=== PATIENT | female | born 1960 | race African-American/Black ===

== ENCOUNTER 2021-12-19 19:21 | Emergency (ER) | payer MEDICARE, MEDICAID ==
[~2021-12-19] VITALS: Ht 182.8 cm; Wt 59.0 kg
[2021-12-19] MEDS ORDERED: EXELON1 EACH TD (19:42)
[2021-12-19] MEDS ORDERED: ATIVAN1 MG PO (19:42)
[2021-12-19] MEDS ORDERED: HALOPERIDOL5 MG PO (19:43)
[2021-12-19] MEDS ORDERED: PALIPERIDONE ER3 MG PO (19:44)
[2021-12-19] MEDS ORDERED: REMERON15 M2 PO (19:45)
[2021-12-19] MEDS ORDERED: TRAZODONE100 MG PO (19:45)
[2021-12-19 20:13] LABS: BILIRUBIN Negative (Negative); BLOOD Negative (Negative); CLARITY Cloudy (Clear); COLOR Yellow (Yellow); GLUCOSE Negative (Negative); KETONE Trace (Negative); LEUKO ESTERASE 2+ (Negative); NITRITE Negative (Negative); PH 6.5 (4.5-8.0)
[2021-12-19 20:15] LABS: BASO % 0.4 % (0.0-1.0); EOS # 0.3 10*3/uL (0.0-0.4); EOS % 3.6 % (1.0-4.0); HEMATOCRIT 33.6 % (37.0-47.0); LYMPH # 1.5 10*3/uL (1.3-4.4); LYMPH % 18.4 % (27.0-41.0); MEAN CORPUSCULAR HGB CONC 33.3 g/dl (33.0-37.0); MEAN PLATELET VOLUME 9.9 fl (9.6-12.3); MONO # 0.8 10*3/uL (0.1-1.0); MONO % 9.8 % (3.0-9.0); NEUT # 5.5 10*3/uL (2.3-7.9); NEUT % 67.6 % (47.0-73.0); PLATELET COUNT AUTOMATED 264 10*3/uL (130-400); RED CELL DISTRI WIDTH 12.2 % (0-14.5); WHITE BLOOD COUNT 8.1 10*3/uL (4.8-10.8)
[2021-12-19 20:22] LABS: URINE AMPHETAMINES < 1000 (1000ng/ml); URINE BARBITURATES < 200 (200ng/ml); URINE BENZODIAZEPINES < 200 (200ng/ml); URINE CANNABINOIDS (THC) < 50 (50ng/ml); URINE COCAINE < 300 (300ng/ml); URINE METHADONE < 300 (300ng/ml); URINE OPIATES < 300 (300ng/ml)
[2021-12-19 20:29] LABS: URINE PHENCYCLIDINE < 25 (25ng/ml)
[2021-12-19 20:43] LABS: ALKALINE PHOSPHATASE 59 U/L (45-117); BUN 15 mg/dl (7-24); CHLORIDE 105 mmol/L (98-107); CPK 32 U/L (26-192); CREATININE 0.72 mg/dL (0.55-1.02); POTASSIUM 3.5 mmol/L (3.5-5.1); SGOT/AST 14 IU/L (3-35); SGPT/ALT 28 U/L (12-78); SODIUM 139 mmol/L (136-145); TOTAL PROTEIN 7.2 gm/dL (6.4-8.2)
[2021-12-19 20:44] LABS: BACTERIA 4+; EPITHELIAL CELLS 21-30; RBC 0-2 rbc/hpf (0-2); WBC 51-100 wbc/hpf (0-5)
[2021-12-19 20:47] LABS: ACETAMINOPHEN (TYLENOL) < 5.0 ug/ml (10-30)
[2021-12-20] MEDS ORDERED: ANTI-DIARRHEAL2 MG PO (00:16)
== END 2021-12-19 22:20 ==
LOC: ED 19:21
PROVIDERS: Emergency Medicine
DX: F32.9 Major depressive disorder, single episode, unspecified (principal); E86.0 Dehydration; N39.0 Urinary tract infection, site not specified; Z79.899 Other long term (current) drug therapy